=== PATIENT | male | born 1985 | race Caucasian/White ===

== ENCOUNTER 2022-12-06 18:34 | Emergency (ER) | payer BC ==
[2022-12-06] MEDS ORDERED: Acetaminophen 500 MG TAB ONE (19:40)
[2022-12-06] MEDS ORDERED: Diazepam 10 MG/2 ML SYRINGE ONE (19:41)
[2022-12-06] MEDS ORDERED: Ondansetron PF 4 MG/2 ML Vial ONE (19:41)
[2022-12-06 20:08] LABS: #Basophils 0.1 10x3/uL (0.0-0.2); #Eosinphils 0.1 10x3/uL (0.0-0.5); #Monocytes 0.3 10x3/uL (0.0-1.1); #Neutrophils 2.9 10x3/uL (1.5-8.4); %Eosinophils 1.2 % (0.0-6.0); %Lymphocytes 36.7 % (18.0-47.0); %Monocytes 6.2 % (0.0-10.0); %Neutrophils 54.7 % (40.0-75.0); Hemoglobin 13.6 g/dL (13.5-17.5); Mean Corpuscular HGB CONC 33.9 g/dL (32.0-36.0); Mean Corpuscular Hemoglobin 30.1 pg (27.0-33.0); Mean Corpuscular Volume 88.7 fl (81.2-95.1); Mean Platelet Volume 9.7 fl (7.4-10.4); Platelet Count 198 10x3/uL (150-450); RBC Distribution Width 12.3 % (11.5-14.5); Red Blood Cell (RBC) Count 4.52 10x6/uL (4.32-5.72); White Blood Cell (WBC) Count 5.2 10x3/uL (3.5-10.5)
[2022-12-06 20:21] LABS: ALT (SGPT) 31 U/L (8-55); AST (SGOT) 26 U/L (5-34); Albumin 4.4 g/dL (3.5-5.0); Alkaline Phosphatase 38 U/L (40-110); Anion Gap 10 mmol/L (10-20); BUN (Urea Nitrogen) 14 mg/dL (8.9-20.6); Bilirubin, Total 0.8 mg/dL (0.2-1.2); Calc. Creatinine Clearance 0 mL/min (70-130); Calcium 9.5 mg/dL (7.8-10.44); Carbon Dioxide 30 mmol/L (22-29); Chloride 104 mmol/L (98-107); Estimated GFR 106; Globulin 2.6 g/dL (2.4-3.5); Glucose 98 mg/dL (70-105); Potassium 3.9 mmol/L (3.5-5.1); Sodium 140 mmol/L (136-145)
[2022-12-06] MEDS ORDERED: Diazepam 5 MG TAB ONE (22:22)
== END 2022-12-06 22:24 | disposition home or self-care (01) ==
LOC: CSHERS 18:34
DX: M54.2 Cervicalgia (principal); R51.9 Headache, unspecified
CPT/HCPCS: 72148; 80053; 85025; 93005; 96361; 96374; 96375; J2405; J3360

== ENCOUNTER → 2022-12-06 | Day surgery (SDC) | payer BC ==
[~2022-12-06] MED LIST: Iopamidol-M 200 41% 20 ML VIAL ONE; Lidocaine 1% PF 5 ML VIAL ONE
== END ==
LOC: CSHRAD 09:27
PROVIDERS: ATTEND Neurological Surgery
PROC: B02BY0Z Computerized Tomography (CT Scan) of Spinal Cord using Other Contrast, Unenhanced and Enhanced (ICD-10-PCS; principal; 2022-12-06)
DX: M51.16 Intervertebral disc disorders with radiculopathy, lumbar region (principal)
CPT/HCPCS: 62304; 72132; Q9966

== ENCOUNTER 2023-07-10 10:09 | Day surgery (SDC) | payer BC ==
[2023-07-08 08:51] VITALS: BMI 24.4
[2023-07-10] MEDS ORDERED: Bupivacaine PF 0.5% 30 ML VIAL ONE (10:13)
[2023-07-10] MEDS ORDERED: PROPOFOL 20 ML ONE (10:24)
[2023-07-10] MEDS ORDERED: Ondansetron PF 4 MG/2 ML Vial ONE (10:24)
[2023-07-10] MEDS ORDERED: Ketorolac Tromethamine 30 MG (1 mL) VIAL ONE (10:24)
[2023-07-10] MEDS ORDERED: Dexamethasone 4 mg/ml Vial ONE (10:24)
[2023-07-10] MEDS ORDERED: Rocuronium Bromide 10 MG/ML (10ML VIAL) ONE (10:24)
[2023-07-10] MEDS ORDERED: Lidocaine 1% PF 5 ML VIAL ONE (10:24)
[2023-07-10] MEDS ORDERED: fentaNYL 50 mcg/mL 1 mL Vial ONE (10:24)
[2023-07-10] MEDS ORDERED: CEFAZOLIN 2 GM VIAL ONE (10:41)
[2023-07-10] MEDS ORDERED: EPINEPHrine 1 MG/ML AMP ONE (11:48)
[2023-07-10] MEDS ORDERED: ePHEDrine Sulfate 50 MG/10 ML VIAL ONE (11:53)
[2023-07-10] MEDS ORDERED: SUGAMMADEX SODIUM 200 MG/2 ML VIAL ONE (12:25)
[2023-07-10] MEDS ORDERED: HYDROcodone/Acetaminophen 10/325 mg Tablet PO PRN (12:57)
[2023-07-10] MEDS ORDERED: HYDROcodone/Acetaminophen 5/325 mg Tablet ONE (13:20)
== END 2023-07-10 14:10 | disposition home or self-care (01) ==
LOC: CSHSDC 10:09
PROVIDERS: ATTEND Surgery
PROC: 0YU54JZ Supplement Right Inguinal Region with Synthetic Substitute, Percutaneous Endoscopic Approach (ICD-10-PCS; principal; 2023-07-10)
DX: K40.90 Unilateral inguinal hernia, without obstruction or gangrene, not specified as recurrent (principal); I10 Essential (primary) hypertension; K42.0 Umbilical hernia with obstruction, without gangrene
CPT/HCPCS: J0171; J0665; J1100; J1885; J2405; J2704; J3010

== ENCOUNTER 2024-06-12 23:15 | Emergency (ER) | payer BC | END 2024-06-13 03:09 | disposition home or self-care (01) | LOC: CSHERS 23:15 | DX: M96.89 Other intraoperative and postprocedural complications and disorders of the musculoskeletal system (principal); M79.89 Other specified soft tissue disorders ==